=== PATIENT | male | born 1995 | race Caucasian/White ===

== ENCOUNTER 2019-12-07 14:00 | Outpatient (REF) | payer MEDICAID, SELFPAY ==
[2019-12-10 13:46] LABS: Patient Race White; SARS-CoV-2 RNA Undetected (Undetected); SARS-CoV-2 Specimen Source Nasal
== END 2019-12-07 14:20 ==
LOC: NCHCN 14:00
PROVIDERS: PCP Family Medicine; Visit Provider Nurse Practitioner Family
DX: Z20.828 Contact with and (suspected) exposure to other viral communicable diseases (principal)
CPT/HCPCS: U0003

== ENCOUNTER 2020-04-01 18:26 | Outpatient (REF) | payer MEDICAID, SELFPAY ==
[2020-04-03 09:53] LABS: Syphilis Serology (RPR) Negative (Negative)
[2020-04-03 10:12] LABS: HIV-1/2 Ag & Ab Screen Negative (Negative)
[2020-04-03 10:24] LABS: Hepatitis C Ab w Rflx HCV PCR Negative (Negative)
== END 2020-04-01 18:46 ==
LOC: NCHCN 18:26
PROVIDERS: PCP Family Medicine; Visit Provider Nurse Practitioner Family
DX: Z11.59 Encounter for screening for other viral diseases (principal); Z11.3 Encounter for screening for infections with a predominantly sexual mode of transmission; Z00.00 Encounter for general adult medical examination without abnormal findings
CPT/HCPCS: 86803; 87389; 86592